=== PATIENT | female | born 1995 | race Asian ===

== ENCOUNTER 2019-02-03 15:19 | Emergency (ER) | payer OTHER ==
--- NOTE | 2019-02-03 15:35 | UC ---
Skin Complaint HPI - HPI Summary HPI Summary: 23 yo female presents with ?allergic reaction. She tells me that on 02/01 she woke up and noticed b/l periorbital redness and swelling that was itchy. She recalls that on 01/30 and 01/31 she used a new face wipe before bed, but had no symptoms on 01/31. Since appearing, her rash has slightly improved with taking benadryl and zyrtec, but is still noticeable. Denies fever, chills, headache, dizziness, vision changes, sore throat, rash elsewhere, recent illness, trouble breathing, or throat swelling. - History of Current Complaint Time Seen by Provider: 02/03/19 15:35 Stated Complaint: POSS ALLERGIC REACTION-SKIN, EYES Hx Obtained From: Patient Onset/Duration: Sudden Onset Onset Severity: Mild Current Severity: Mild Pain Intensity: 2 Pain Scale Used: 0-10 Numeric - Allergy/Home Medications Allergies/Adverse Reactions: Allergies Allergy/AdvReac Type Severity Reaction Status Date / Time Tree Nuts Allergy Severe Anaphylatic Verified 02/03/19 15:42 Shock PMH/Surg Hx/FS Hx/Imm Hx - Additional Past Medical History Additional PMH: None - Surgical History Surgical History: None - Family History Known Family History: Positive: None - Social History Occupation: Student Lives: Dormitory/Roommates Alcohol Use: Occasionally Substance Use Type: None Smoking Status (MU): Never Smoked Tobacco Review of Systems All Other Systems Reviewed And Are Negative: No Constitutional: Positive: Negative Skin: Positive: Rash Eyes: Positive: Negative ENT: Positive: Negative Respiratory: Positive: Negative Cardiovascular: Positive: Negative Gastrointestinal: Positive: Negative Neurovascular: Positive: Negative Neurological: Positive: Negative Psychological: Positive: Negative Physical Exam - Summary Physical Exam Summary: GENERAL: NAD. WDWN. No distress. SKIN: See HEENT HEENT: Faint erythema b/l periorbital with slight edema. No warmth, tenderness, or streaking. EOMI. PERRLA. No conjunctival inflammation or discharge. No lip or other facial edema. Airway patent without oropharyngeal edema. NECK: Supple. Nontender. No lymphadenopathy. CHEST: CTAB. No wheezing. No accessory muscle use. Breathing comfortably and in no distress. CV: RRR. Pulses intact. Cap refill <2seconds NEURO: Alert. PSYCH: Age appropriate behavior. Triage Information Reviewed: Yes Vital Signs: Vital Signs: Temp Pulse Resp BP Pulse Ox 98.6 F 72 16 100/60 99 02/03/19 15:31 02/03/19 15:31 02/03/19 15:31 02/03/19 15:31 02/03/19 15:31 Vital Signs Reviewed: Yes Course/Dx - Course Course Of Treatment: Suspect allergic reaction from face wipe. Advised to continue benadryl and will rx for prednisone and have her return if symptoms do not resolve - Diagnoses Provider Diagnosis: Contact dermatitis Discharge ED - Sign-Out/Discharge Documenting (check all that apply): Patient Departure All imaging exams completed and their final reports reviewed: No Studies - Discharge Plan Condition: Stable Disposition: HOME Prescriptions: predniSONE TAB* [Deltasone 20 MG TAB*] 60 mg PO DAILY #14 tab Patient Education Materials: General Allergic Reaction (ED) Referrals: No Primary Care Phys,NOPCP [Primary Care Provider] - Additional Instructions: - Take prednisone exactly as prescribed until gone - Okay to take Benadryl 25mg every 6 hours as needed for itching and hives. This medication may cause drowsiness - do NOT drive, operate machinery or drink alcohol while taking Benadryl -Avoid getting over-heated (hot showers, hot tubs, exercise) for at least 48 hours - Try to avoid aspirin, NSAIDs (Motrin, Aleve, Naprosyn) for 2-3 days - Okay to apply cool compresses to the area of injury -Contact your doctor or return here with questions or concerns - Billing Disposition and Condition Condition: STABLE Disposition: Home
[2019-02-03 15:41] VITALS: BP 100/60
== END 2019-02-03 16:06 | disposition home or self-care (01) ==
LOC: UCEAST 15:19
DX: L25.9 Unspecified contact dermatitis, unspecified cause (principal); Z91.018 Allergy to other foods
CPT/HCPCS: 99202; G0463